=== PATIENT | female | born 1950 | race Caucasian/White ===

== ENCOUNTER 2025-02-02 09:37 | Outpatient (RCR) | payer MEDICARE, SELFPAY ==
--- NOTE | 2025-01-31 15:00 | URNOTE ---
Request received for authorization for Infed ([id number]). Prior authorization is not required per [facility] ref# [id number], based on medical necessity and follow Medicare guidelines.
[2025-02-02 09:52] VITALS: BP 133/7; PULSE 65; RESP 21; TEMP 35.6; O2SAT 97
[2025-02-02] MEDS: IRON DEXTRAN COMPLEX 25 MG in 0.9 % SODIUM CHLORIDE 100 ml 100 ML 402 MG IVPB (10:36)
[2025-02-02 11:15] VITALS: BP 150/78; PULSE 71; RESP 16; O2SAT 97
[2025-02-02] MEDS: IRON DEXTRAN COMPLEX 975 MG in 0.9 % SODIUM CHLORIDE 250 ml 250 ML 270 MG IVPB (11:46)
[2025-02-02 12:55] VITALS: BP 135/55; PULSE 60; RESP 16; O2SAT 97
== END 2025-08-01 23:59 | disposition home or self-care (01) ==
LOC: CCIC 09:37
PROVIDERS: Visit Provider Clinical Nurse Specialist
DX: D50.9 Iron deficiency anemia, unspecified (principal); G25.81 Restless legs syndrome
CPT/HCPCS: 96365; J1750; J7050